=== PATIENT | female | born 1965 | race Caucasian/White ===

== ENCOUNTER → 2018-07-04 | Outpatient (CLI) | payer OTHER ==
--- NOTE | 2018-07-04 16:50 | Diagnostic Imaging Report ---
PROCEDURE: CT chest without contrast. TECHNIQUE: Multiple contiguous axial images were obtained through the chest without the use of intravenous contrast. INDICATION: Pulmonary nodules noted on previous CT imaging 6 weeks ago obtained for pneumonia. Followup. COMPARISON: Currently have no prior studies and/or reports for comparison. FINDINGS: Visualized portion of the thyroid gland appearing unremarkable. Very mildly prominent but nonpathologic enlarged right-sided precarinal lymph node. No suggestion of pathologically enlarged lymphadenopathy. Heart size is normal. There is present at least mild scattered coronary artery calcification. Small hiatal hernia with minimal wall thickening at the gastroesophageal junction. A few mildly prominent but nonpathologic enlarged bilateral axillary lymph nodes. There is presence of emphysematous changes of the lung parenchyma. No infiltrate. There is a spiculated, concerning predominantly solid mass lateral aspect of the basilar right upper lobe. Measures approximately 13 x 12 mm axial plane x 18 mm craniocaudal. Minimal linear extension to the pleura. There are a few additional scattered smaller, predominantly micronodules present. Marker lesions as follows: Image 28 series 3, lateral right upper lobe 5 mm solid nodule. Image 56 series 3, centrally left lower lobe, 4 mm solid nodule. Image 62 series 3, posterior lateral right lower lobe, 5 mm predominantly solid nodule. Additional smaller micronodules are present. Low-density foci in the right kidney favoring probable cyst. Cholecystectomy clips are present. Adrenal glands normal in configuration. Osseous structures with indeterminate but probable benign sclerotic foci left T9 vertebral body. IMPRESSION: 1. Spiculated mass of the right upper lobe concerning for primary lung neoplasm until proven otherwise. It is noted there is a somewhat prominent feeding vessel into this area. Consideration might be given to PET CT imaging for initial followup assessment. 2. Multiple additional smaller micronodules within both lung lundberg are present currently indeterminate. Findings are superimposed on emphysematous lung disease. Called to Dr. Harleen Norwood at 2:49 p.m. by jeanette. Dictated by: Dictated on workstation # [id number]
== END ==
LOC: RAD FS 09:22
PROVIDERS: ATTEND Family Medicine
DX: R91.8 Other nonspecific abnormal finding of lung field (principal)
CPT/HCPCS: 71250

== ENCOUNTER → 2018-07-11 | Outpatient (CLI) | payer OTHER ==
--- NOTE | 2018-07-11 14:25 | Diagnostic Imaging Report ---
INDICATION: Right lung mass. Study is performed for further evaluation. TECHNIQUE: Serum blood glucose level at the time of injection was 95 mg/dL. The patient was administered 11.9 mCi F-18 FDG intravenously in the right antecubital location and whole body PET imaging was performed. Noncontrast CT was also performed for attenuation correction and anatomic correlation. COMPARISON: Correlation is made with noncontrast CT chest from 07/04/2018. FINDINGS; There appears to be symmetric activity throughout the brain. There appears to be physiologic activity within the neck. There is some vague uptake involving the right thyroid lobe but no discrete mass is seen on noncontrast CT. Imaging through the chest is without mediastinal or hilar hypermetabolism. The spiculated nodular density in the right upper lobe on recent CT is without any evidence of FDG uptake. No parenchymal hypermetabolism is seen. There is uptake at the intra-atrial septum consistent with activity within brown fat. Imaging through the abdomen and pelvis is without abnormal uptake. There is physiologic activity within the GI and tracts. Lower extremities are unremarkable. IMPRESSION: Essentially unremarkable whole body PET/CT. The spiculated density in the right upper lobe does not show FDG avidity. While morphologically this lesion does remain suspicious on the noncontrast CT, lack of FDG uptake which could be secondary to more lower grade type neoplasm. Followup chest CT in four to six months is recommended to confirm stability. Dictated by: Dictated on workstation # [id number]
== END ==
LOC: RAD 07:49
PROVIDERS: ATTEND Family Medicine
DX: J98.4 Other disorders of lung (principal); R91.8 Other nonspecific abnormal finding of lung field